=== PATIENT | male | born 1975 | race Caucasian/White ===

== ENCOUNTER → 2023-07-13 11:19 | Outpatient (BNVA) | payer BC, SELFPAY | PROVIDERS: PCP Nurse Practitioner Family; Visit Provider Nurse Practitioner Family | DX: R73.9 Hyperglycemia, unspecified (principal); Z12.5 Encounter for screening for malignant neoplasm of prostate; Z13.6 Encounter for screening for cardiovascular disorders | CPT/HCPCS: 80053; 80061; 83036; 84443; 85025; G0103 ==

== ENCOUNTER 2023-08-31 10:22 | Day surgery (SDC) | payer BC, SELFPAY ==
[2023-08-31 10:48] VITALS: BP 174/97; PULSE 62; RESP 18; TEMP 36.8; O2SAT 100
[2023-08-31] MEDS: sodium chloride 0.9% 1,000 ML 30 ML IV (10:52)
--- NOTE | 2023-08-31 11:32 | P.ANESASSM_ITS ---
Pre-Anesthetic Assessment Height/Weight: Height 1.88 m Weight 183.705 kg Temp Pulse Resp BP Pulse Ox O2 Del Method 98.2 F 62 18 174/97 100 Room Air 08/31/23 10:48 08/31/23 10:48 08/31/23 10:48 08/31/23 10:48 08/31/23 10:48 08/31/23 10:48 Preop Diagnosis: screening Operation Date: 08/31/23 11:30 Proposed Procedures p Colonoscopy 30063, G0121, Z12.11(Not Applicable) - Yuval Hoffman DO Familial anesthetic complications: None Was Beta Becca taken within 24 hours: N/A Was Clonidine taken within 24 hours: N/A Last intake: Intake Last Liquid Date 08/30/23 Last Liquid Time 22:30 Last Solid Date 08/29/23 Last Solid Time 22:00 Social No alcohol and No tobacco Exam alert, oriented x 3 and clear to auscultation bilaterally Airway Mallampati: Class II Dentition: full History/ROS No significant history except as noted Pulmonary Sleep Apnea (does not wear CPAP) CV/HEM None reported None reported Hepatic None reported GI None reported Metabolic Morbid Obesity [facility] [place] None reported Neuropsych None reported Anesthetic Plan ASA status: 3 Anesthesia: Anesthesia Evaluation and MAC Risk of > 500 ml blood loss (7ml/kg in children): No Medications/Allergies Home Medications Medication Instructions Recorded Confirmed Last Taken Type No Known Home Medications 07/13/23 08/29/23 Unknown History Allergies Allergy/AdvReac Type Severity Reaction Status Date / Time No Known Allergies Allergy Verified 08/31/23 10:22 Current Medications Generic Name Dose Route Start Last Admin Trade Name Freq PRN Reason Stop Dose Admin Sodium Chloride 1,000 mls @ 30 mls/hr 08/31/23 10:30 08/31/23 10:52 Sodium Chloride 0.9% IV 09/01/23 10:29 30 mls/hr .Q24H KOBI Administration PFSH Anesthesia Family History Father Cancer prostate cancer Social History Smoking and tobacco/nicotine status: never used tobacco/nicotine Second hand smoke exposure: No Alcohol intake: never Substance/Drug Use: never Adopted: No Caregiver/support person: No Lives independently: Yes Household members: spouse and children Housing: House Marital status: Number of children: 2 Highest education level completed: Some College, No Degree service: No Current occupational status: employed 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
--- NOTE | 2023-08-31 12:11 | P.HP_ITS ---
Providers/Chief Complaint Primary Care Provider: JOSE ALBERTO Terrell Chief Complaint: Z12.11 History of Present Illness Jordan Wen is a 48 year old male Review of Systems General: Reports: 10 or more systems reviewed and unremarkable except in HPI and below Medications/Allergies Home Medications Medication Instructions Recorded Confirmed Last Taken Type No Known Home Medications 07/13/23 08/29/23 Unknown History Allergies Allergy/AdvReac Type Severity Reaction Status Date / Time No Known Allergies Allergy Verified 08/31/23 10:22 PFSH Acute PFSH: Family History Father Cancer prostate cancer Social History Smoking and tobacco/nicotine status: never used tobacco/nicotine Second hand smoke exposure: No Alcohol intake: never Substance/Drug Use: never Adopted: No Caregiver/support person: No Lives independently: Yes Household members: spouse and children Housing: House Marital status: Number of children: 2 Highest education level completed: Some College, No Degree service: No Current occupational status: employed 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 Current occupational exposures/hazards: No Pets and animals: No Leisure activites: sports and clubs Sexually active: Yes Do you think of yourself as: Straight/Heterosexual Current gender identity: Male Special mamta needs: No Agree to transfusion: Yes Vitals/I&O/Wt Last Vital Signs Temp 98.2 F 08/31/23 10:48 Pulse 62 08/31/23 10:48 Resp 18 08/31/23 10:48 BP 174/97 08/31/23 10:48 Pulse Ox 100 08/31/23 10:48 O2 Del Method Room Air 08/31/23 10:48 Weight last 48 hrs Weight 405 lb A&P Assessment and plan (1) Screening for colon cancer: Plan Colonoscopy Attestations Medical Necessity Statement*: Home Coding Level of Care Code Acute Code for Chg Fwd Diagnoses Screening for colon cancer Z12.11
[2023-08-31 12:36] VITALS: BP 141/82; PULSE 76; RESP 16; TEMP 36.6; O2SAT 96
[2023-08-31 12:41] VITALS: BP 155/88; PULSE 75; RESP 16; O2SAT 97
[2023-08-31 13:00] VITALS: BP 150/84; PULSE 69; RESP 18; O2SAT 99
--- NOTE | 2023-08-31 14:42 | ANE.PACU2 ---
Inpatient post-anesthesia follow up: Airway intact: Yes Vital signs: Temperature 97.8 F Pulse Rate 69 Respiratory Rate 18 Blood Pressure 150/84 Pulse Oximetry 99 Oxygen Delivery Me thod Room Air Oxygen Flow Rate Fraction of Inspir ed Oxygen Hydration adequate: Yes Nausea and vomiting: No Pain level: 2 Mental status: Baseline
== END 2023-08-31 13:24 | disposition home or self-care (01) ==
PROVIDERS: PCP Nurse Practitioner Family; Visit Provider Surgery
PROC: 0DJD8ZZ Inspection of Lower Intestinal Tract, Via Natural or Artificial Opening Endoscopic (ICD-10-PCS; CPT 45378; principal; 2023-08-31 11:30)
DX: Z12.11 Encounter for screening for malignant neoplasm of colon (principal); D12.5 Benign neoplasm of sigmoid colon; K64.8 Other hemorrhoids
CPT/HCPCS: 45385; 88305; J2704; J7030

== ENCOUNTER → 2024-07-24 09:49 | Outpatient (BNVA) | payer OTHER, SELFPAY | PROVIDERS: Family Provider Nurse Practitioner Family; PCP Nurse Practitioner Family; Visit Provider Nurse Practitioner Family | DX: R73.9 Hyperglycemia, unspecified (principal) | CPT/HCPCS: 80053; 80061; 83036; 85025; G0103 ==

== ENCOUNTER → 2024-12-10 10:16 | Outpatient (BNVA) | payer OTHER, SELFPAY | PROVIDERS: Family Provider Nurse Practitioner Family; PCP Nurse Practitioner Family; Visit Provider Nurse Practitioner Family | DX: E11.9 Type 2 diabetes mellitus without complications (principal) | CPT/HCPCS: 80053; 80061; 83036; 85025 ==